=== PATIENT | male | born 1945 | race Caucasian/White ===

== ENCOUNTER 2018-04-15 06:57 | Inpatient (IN) | payer MEDICARE ==
[~2018-04-15] VITALS: Ht 165.1 cm; Wt 80.0 kg
[2018-04-15 07:17] VITALS: BP 167/74; PULSE 66; RESP 18; TEMP 97.7; O2SAT 97
--- NOTE | 2018-04-15 07:36 | PD ---
HPI Chief Complaint: Psychiatric Symptoms Time Seen by Provider: 07:32 Travel History International Travel<30 days: No Contact w/Intl Traveler<30days: No Traveled to known affect area: No History of Present Illness HPI HPI is questionable secondary to patient's altered mental status. 72-year-old male, with history of dementia, presents to the emergency department under Newman act. Apparently he was found walking around a parking lot in his underwear today. He did not know his name or where he was. He apparently is a silver alert from [place]. On my examination the patient is alert and oriented 3; he knows he is in [place], but does not know where; he knows his name and date. He said he drove down here from [place] the day before yesterday. He does not know who the president is. He has a bag of medications with them and says he has not taken any of them except for atenolol, last yesterday. When I asked him if he has been taking his medications he made the statement, "no, they have been trying to kill me." When I asked him who is trying to kill him he could not verify. he denies suicidal or homicidal ideations. Denies illicit drug use. Denies alcohol use. Has no emergent medical complaints at this time. Denies chest pain, shortness of breath, abdominal pain. Symptoms are moderate to severe in severity. No known aggravating or relieving factors. Unknown duration. Unknown onset. Patient says he has "100s of allergies." He cannot verify his past medical history. No other modifying factors or associated signs and symptoms. PFSH Past Medical History Hx Anticoagulant Therapy: Yes (aspirin) Cardiovascular Problems: Yes (unknown cardiac issue) Social History Tobacco Use: No Allergies-Medications (Allergen,Severity, Reaction): Uncoded Allergies: "brain medicine" (Adverse Reaction, Mild, Headache, 04/15/18) Review of Systems Except as stated in HPI: all other systems reviewed are Neg Physical Exam Narrative GENERAL: Well-nourished, well-developed elderly, male patient, in no acute distress SKIN: Warm and dry. HEAD: Atraumatic. Normocephalic. EYES: Pupils equal and round. ENT: Mucosa pink and moist. NECK: Supple. Trachea midline. CARDIOVASCULAR: Regular rate and rhythm. No murmur appreciated. RESPIRATORY: No accessory muscle use. Clear to auscultation. Breath sounds equal bilaterally. GASTROINTESTINAL: Abdomen soft, non-tender, nondistended. Hepatic and splenic margins not palpable. Bowel sounds are active 4 quadrants. MUSCULOSKELETAL: No obvious deformities. No clubbing. No cyanosis. No edema. BACK: No CVA tenderness. NEUROLOGICAL: Awake and alert. Oriented 3. No obvious cranial nerve deficits. Motor grossly within normal limits. Normal speech. Moves all extremities. 5/5 strength to all extremities. PSYCHIATRIC: Delusional thought processes. No hallucinations. Data Data Last Documented VS Vital Signs Date Time Temp Pulse Resp B/P (MAP) Pulse Ox O2 Delivery O2 Flow Rate FiO2 04/15/18 07:17 97.7 66 18 167/74 (105) 97 Orders Orders Complete Blood Count With Diff (04/15/18 07:32) Comprehensive Metabolic Panel (04/15/18 07:32) Thyroid Stimulating Hormone (04/15/18 07:32) Psych Screen (04/15/18 07:32) Drug Screen, Random Urine (04/15/18 07:32) Alcohol (Ethanol) (04/15/18 07:32) Salicylates (Aspirin) (04/15/18 07:32) Tylenol (Acetaminophen) (04/15/18 07:32) Ct Brain W/O Iv Contrast(Rout) (04/15/18 ) Urinalysis - C+S If Indicated (04/15/18 07:36) Admit To Inpatient Psych (04/15/18 ) Vital Signs (Adult) ANGELA.Q12H.E (04/15/18 09:53) Activity Oob Ad Rosie (04/15/18 09:53) Lorazepam (Ativan) (04/15/18 10:00) Lorazepam Inj (Ativan Inj) (04/15/18 10:00) Lorazepam (Ativan) (04/15/18 10:00) Lorazepam Inj (Ativan Inj) (04/15/18 10:00) Acetaminophen (Tylenol) (04/15/18 10:00) Magnesium Hydroxide Liq (Milk Of Magnesi (04/15/18 10:00) Al-Mag Hy-Si 40-40-4 Mg/Ml Liq (Mag-Al P (04/15/18 10:00) Nicotine 21 Mg Patch.24 Hr (Habitrol 21 (04/15/18 10:00) Basic Metabolic Panel (Bmp) (04/16/18 06:00) Lipid Profile (04/16/18 06:00) Hemoglobin (Hgb) A1c (04/16/18 06:00) Labs Laboratory Tests Test 04/15/18 07:32 04/15/18 07:45 White Blood Count 7.1 TH/MM3 Red Blood Count 4.66 MIL/MM3 Hemoglobin 13.0 GM/DL Hematocrit 39.7 % Mean Corpuscular Volume 85.2 FL Mean Corpuscular Hemoglobin 28.0 PG Mean Corpuscular Hemoglobin Concent 32.8 % Red Cell Distribution Width 14.6 % Platelet Count 248 TH/MM3 Mean Platelet Volume 7.9 FL Neutrophils (%) (Auto) 59.6 % Lymphocytes (%) (Auto) 25.3 % Monocytes (%) (Auto) 8.6 % Eosinophils (%) (Auto) 5.7 % Basophils (%) (Auto) 0.8 % Neutrophils # (Auto) 4.2 TH/MM3 Lymphocytes # (Auto) 1.8 TH/MM3 Monocytes # (Auto) 0.6 TH/MM3 Eosinophils # (Auto) 0.4 TH/MM3 Basophils # (Auto) 0.1 TH/MM3 CBC Comment DIFF FINAL Differential Comment Blood Urea Nitrogen 16 MG/DL Creatinine 1.16 MG/DL Random Glucose 95 MG/DL Total Protein 7.6 GM/DL Albumin 4.2 GM/DL Calcium Level 8.8 MG/DL Alkaline Phosphatase 70 U/L Aspartate Amino Transf (AST/SGOT) 20 U/L Alanine Aminotransferase (ALT/SGPT) 21 U/L Total Bilirubin 0.5 MG/DL Sodium Level 144 MEQ/L Potassium Level 3.9 MEQ/L Chloride Level 108 MEQ/L Carbon Dioxide Level 26.7 MEQ/L Anion Gap 9 MEQ/L Estimat Glomerular Filtration Rate 62 ML/MIN Thyroid Stimulating Hormone 3rd Gen 2.150 uIU/ML Salicylates Level LESS THAN 1.7 MG/DL Acetaminophen Level LESS THAN 2.0 MCG/ML Ethyl Alcohol Level LESS THAN 3 MG/DL Urine Color Straw Urine Turbidity CLEAR Urine pH 6.0 Urine Specific [place] 1.003 Urine Protein NEG mg/dL Urine Glucose (UA) NEG mg/dL Urine Ketones NEG mg/dL Urine Occult Blood NEG Urine Nitrite NEG Urine Bilirubin NEG Urine Urobilinogen LESS THAN 2 mg/dL Urine Leukocyte Esterase NEG Urine WBC 1 /hpf Microscopic Urinalysis Comment CULT NOT INDICATED Urine Opiates Screen NEG Urine Barbiturates Screen NEG Urine Amphetamines Screen NEG Urine Benzodiazepines Screen POS Urine Cocaine Screen NEG Urine Cannabinoids Screen NEG MDM Medical Decision Making Medical Screen Exam Complete: Yes Emergency Medical Condition: Yes Medical Record Reviewed: Yes Differential Diagnosis Dementia, Alzheimer's disease, paranoid personality, medical clearance for psychiatric admission Narrative Course Patient presents under a Newman act. Physical examination and vital signs are essentially unremarkable. Patient has no medical complaints to report. Psych screen has been ordered. If the laboratory results are unremarkable, the patient will be medically cleared for psychiatric evaluation and disposition. This patient is a silver alert from [place]. He has history of dementia. His HPI is questionable secondary to his altered mental status. He has a bag of medications with him and he cannot verify when he last took his medication, although he does state he last took atenolol yesterday. He is alert and oriented 3. He is paranoid and statements that someone is trying to kill him. He denies suicidal ideation. Denies homicidal ideation. I will do CT head to rule out any acute findings. CT head ordered. 1006: Head CT concluded: Head CT 04/15/18 0000 Signed Impressions: CONCLUSION: 1. No acute intracranial abnormality is identified. 2. There is mild generalized atrophy. Diagnosis Primary Impression: Medical clearance for psychiatric admission Condition: Stable Mariaa Medellin Apr 15, 2018 07:36
[2018-04-15 07:42] LABS: AUTOMATED NEUTROPHIL # 4.2 TH/MM3 (1.8-7.7); BASOPHIL # 0.1 TH/MM3 (0-0.2); BASOPHIL % 0.8 % (0.0-2.0); EOSINOPHIL # 0.4 TH/MM3 (0-0.4); EOSINOPHIL % 5.7 % (0.0-4.0); HEMATOCRIT 39.7 % (39.0-51.0); LYMPH % 25.3 % (9.0-44.0); LYMPHOCYTE # 1.8 TH/MM3 (1.0-4.8); MEAN CELL VOLUME 85.2 FL (80.0-100.0); MEAN CORPUSCULAR HGB CONC 32.8 % (32.0-36.0); MEAN PLATELET VOLUME 7.9 FL (7.0-11.0); MONO % 8.6 % (0.0-8.0); MONOCYTE # 0.6 TH/MM3 (0-0.9); NEUT % 59.6 % (16.0-70.0); PLATELET COUNT 248 TH/MM3 (150-450); RED BLOOD COUNT 4.66 MIL/MM3 (4.50-5.90); RED CELL DISTRIBUTION WIDTH 14.6 % (11.6-17.2); WHITE BLOOD COUNT 7.1 TH/MM3 (4.0-11.0)
--- NOTE | 2018-04-15 08:05 | RADRPT ---
EXAM DATE: 04/15/2018 7:57 AM EDT AGE/SEX: 72 years / Male INDICATIONS: Altered mental status, Newman Act CLINICAL DATA: This is the patient's initial encounter. Patient reports that signs and symptoms have been present for 1 day and indicates a pain score of 0/10. MEDICAL/SURGICAL HISTORY: None. None. RADIATION DOSE: 38.07 CTDI (mGy) COMPARISON: No prior exams available for comparison. TECHNIQUE: CT of the head without contrast. Using automated exposure control and adjustment of the mA and/or kV according to patient size, radiation dose was kept as low as reasonably achievable to ob tain optimal diagnostic quality images. DICOM format image data is available electronically for revi ew and comparison. FINDINGS: Cerebrum: There is mild generalized atrophy and ventricles are normal given the degree of atrophy. M ild periventricular white matter change is present. No midline shift, mass lesion, hemorrhage or acu te infarction. No extraaxial fluid collections are seen. Posterior Fossa: The cerebellum and brainstem demonstrate no acute abnormality. The 4th ventricle is midline. The cerebellopontine angle is within normal limits. Extracranial: There is complete opacification of the visualized left maxillary sinus. There has been prior left cataract surgery. Skull: The calvaria is intact. No skull fracture. CONCLUSION: 1. No acute intracranial abnormality is identified. 2. There is mild generalized atrophy. Electronically signed by: Renny Brown MD 04/15/2018 8:03 AM EDT
[2018-04-15 08:17] LABS: ALBUMIN 4.2 GM/DL (3.4-5.0); ALT (GPT) 21 U/L (12-78); AST (GOT) 20 U/L (15-37); BICARBONATE 26.7 MEQ/L (21.0-32.0); BLOOD UREA NITROGEN 16 MG/DL (7-18); CALCIUM 8.8 MG/DL (8.5-10.1); CHLORIDE 108 MEQ/L (98-107); CREATININE 1.16 MG/DL (0.60-1.30); GLOMERULAR FILTRATION RATE 62 ML/MIN (>89); GLUCOSE,RANDOM 95 MG/DL (74-106); SODIUM (NA) 144 MEQ/L (136-145)
[2018-04-15 08:27] LABS: ALKALINE PHOSPHATASE 70 U/L (45-117); TOTAL BILIRUBIN ADULT 0.5 MG/DL (0.2-1.0); TOTAL PROTEIN 7.6 GM/DL (6.4-8.2)
[2018-04-15 08:48] LABS: ACETAMINOPHEN LESS THAN 2.0 MCG/ML (10.0-30.0)
[2018-04-15 09:44] LABS: BILIRUBIN, URINE NEG (NEG); BLOOD, URINE NEG (NEG); GLUCOSE,URINE NEG (NEG); KETONE, URINE NEG (NEG); NITRITE,URINE NEG (NEG); URINE COLOR Straw (YELLW/STRAW); URINE LEUKOCYTE ESTERASE NEG (NEG)
[2018-04-15] MEDS ORDERED: ACETAMINOPHEN 325 MG TAB PO PRN (10:00)
[2018-04-15] MEDS: NICOTINE 21 MG/24 HR PATCH T-DERMAL SCH (10:00)
[2018-04-15] MEDS ORDERED: ALUMINUM/MAGNESIUM/SIMETH 30 ML CUP PO PRN (10:00)
[2018-04-15] MEDS ORDERED: LORazepam 2 MG/ML VIAL IM PRN ×2 (10:00)
[2018-04-15] MEDS ORDERED: LORazepam 0.5 MG TAB PO PRN (10:00)
[2018-04-15] MEDS ORDERED: MAGNESIUM HYDROXIDE SUSP 30 ML CUP PO PRN (10:00)
[2018-04-15] MEDS ORDERED: LORazepam 1 MG TAB PO PRN ×2 (10:00→20:00)
[2018-04-15] MEDS ORDERED: DIAZ10TA PO (10:10)
[2018-04-15] MEDS ORDERED: ASPI81CH7 CHEW (10:10)
[2018-04-15] MEDS ORDERED: DULO1CAP2 PO (10:10)
[2018-04-15] MEDS ORDERED: CYCL5TAB PO (10:10)
[2018-04-15] MEDS ORDERED: ATEN50TA PO (10:10)
[2018-04-15] MEDS ORDERED: HALOPERIDOL LACTATE 5 MG/ML AMP IM ONE ×2 (10:15→19:45)
[2018-04-15] MEDS ORDERED: LORazepam 2 MG/ML VIAL IM ONE ×2 (10:15→19:45)
[2018-04-15] MEDS ORDERED: OXYC15TA PO (10:39)
[2018-04-15] MEDS ORDERED: NAME10TA PO (10:39)
[2018-04-15] MEDS ORDERED: AMLO5TAB2 PO (10:39)
[2018-04-15] MEDS ORDERED: AMBI10TA PO (10:39)
[2018-04-15] MEDS ORDERED: MEMA1PAK (10:39)
[2018-04-15] MEDS ORDERED: ROSU1TAB4 PO (10:47)
[2018-04-15] MEDS ORDERED: PRED20 PO (10:47)
[2018-04-15] MEDS ORDERED: PANT40TA3 PO (10:47)
[2018-04-15] MEDS ORDERED: FAMO20TA2 PO (10:47)
[2018-04-15] MEDS ORDERED: ZOFR4TAB PO (10:47)
[2018-04-15] MEDS ORDERED: LEVE250T5 PO (10:47)
[2018-04-15 12:20] VITALS: BP 147/67; PULSE 77; RESP 16; O2SAT 98
--- NOTE | 2018-04-15 12:48 | PD ---
Physical Exam Time Seen by Provider: 12:43 Narrative I evaluated the patient after the patient was found on the floor next to his bed and a fall alert was called. According to the RN this was unwitnessed and he was found on the floor next to his bed. He had no loss of consciousness. According to the RN the patient said that he had rolled off the bed. On my examination the patient states he did roll off the bed onto the floor. He also states that he is rolling off the bed every 5 minutes. He states he has water coming out of his mouth, and there is nothing coming out of his mouth at all. I evaluated this patient earlier this morning and his mental status is unchanged from my previous exam. The patient does not take any blood thinners. I do not see any scalp or facial hematomas, abrasions, lacerations. He had a head CT this morning that was unremarkable. I do not feel it is necessary to repeat the head CT at this time. Data Data Last Documented VS Vital Signs Date Time Temp Pulse Resp B/P (MAP) Pulse Ox O2 Delivery O2 Flow Rate FiO2 04/15/18 07:17 97.7 66 18 167/74 (105) 97 Room Air Orders Orders Complete Blood Count With Diff (04/15/18 07:32) Comprehensive Metabolic Panel (04/15/18 07:32) Thyroid Stimulating Hormone (04/15/18 07:32) Psych Screen (04/15/18 07:32) Drug Screen, Random Urine (04/15/18 07:32) Alcohol (Ethanol) (04/15/18 07:32) Salicylates (Aspirin) (04/15/18 07:32) Tylenol (Acetaminophen) (04/15/18 07:32) Ct Brain W/O Iv Contrast(Rout) (04/15/18 ) Urinalysis - C+S If Indicated (04/15/18 07:36) Admit To Inpatient Psych (04/15/18 ) Vital Signs (Adult) ANGELA.Q12H.E (04/15/18 09:53) Activity Oob Ad Rosie (04/15/18 09:53) Lorazepam (Ativan) (04/15/18 10:00) Lorazepam Inj (Ativan Inj) (04/15/18 10:00) Acetaminophen (Tylenol) (04/15/18 10:00) Magnesium Hydroxide Liq (Milk Of Magnesi (04/15/18 10:00) Al-Mag Hy-Si 40-40-4 Mg/Ml Liq (Mag-Al P (04/15/18 10:00) Nicotine 21 Mg Patch.24 Hr (Habitrol 21 (04/15/18 10:00) Basic Metabolic Panel (Bmp) (04/16/18 06:00) Lipid Profile (04/16/18 06:00) Hemoglobin (Hgb) A1c (04/16/18 06:00) Labs Laboratory Tests Test 04/15/18 07:32 04/15/18 07:45 White Blood Count 7.1 TH/MM3 Red Blood Count 4.66 MIL/MM3 Hemoglobin 13.0 GM/DL Hematocrit 39.7 % Mean Corpuscular Volume 85.2 FL Mean Corpuscular Hemoglobin 28.0 PG Mean Corpuscular Hemoglobin Concent 32.8 % Red Cell Distribution Width 14.6 % Platelet Count 248 TH/MM3 Mean Platelet Volume 7.9 FL Neutrophils (%) (Auto) 59.6 % Lymphocytes (%) (Auto) 25.3 % Monocytes (%) (Auto) 8.6 % Eosinophils (%) (Auto) 5.7 % Basophils (%) (Auto) 0.8 % Neutrophils # (Auto) 4.2 TH/MM3 Lymphocytes # (Auto) 1.8 TH/MM3 Monocytes # (Auto) 0.6 TH/MM3 Eosinophils # (Auto) 0.4 TH/MM3 Basophils # (Auto) 0.1 TH/MM3 CBC Comment DIFF FINAL Differential Comment Blood Urea Nitrogen 16 MG/DL Creatinine 1.16 MG/DL Random Glucose 95 MG/DL Total Protein 7.6 GM/DL Albumin 4.2 GM/DL Calcium Level 8.8 MG/DL Alkaline Phosphatase 70 U/L Aspartate Amino Transf (AST/SGOT) 20 U/L Alanine Aminotransferase (ALT/SGPT) 21 U/L Total Bilirubin 0.5 MG/DL Sodium Level 144 MEQ/L Potassium Level 3.9 MEQ/L Chloride Level 108 MEQ/L Carbon Dioxide Level 26.7 MEQ/L Anion Gap 9 MEQ/L Estimat Glomerular Filtration Rate 62 ML/MIN Thyroid Stimulating Hormone 3rd Gen 2.150 uIU/ML Salicylates Level LESS THAN 1.7 MG/DL Acetaminophen Level LESS THAN 2.0 MCG/ML Ethyl Alcohol Level LESS THAN 3 MG/DL Urine Color Straw Urine Turbidity CLEAR Urine pH 6.0 Urine Specific [place] 1.003 Urine Protein NEG mg/dL Urine Glucose (UA) NEG mg/dL Urine Ketones NEG mg/dL Urine Occult Blood NEG Urine Nitrite NEG Urine Bilirubin NEG Urine Urobilinogen LESS THAN 2 mg/dL Urine Leukocyte Esterase NEG Urine WBC 1 /hpf Microscopic Urinalysis Comment CULT NOT INDICATED Urine Opiates Screen NEG Urine Barbiturates Screen NEG Urine Amphetamines Screen NEG Urine Benzodiazepines Screen POS Urine Cocaine Screen NEG Urine Cannabinoids Screen NEG MDM Supervised Visit with JOSE: No Narrative Course I evaluated the patient after the patient was found on the floor next to his bed and a fall alert was called. According to the RN this was unwitnessed and he was found on the floor next to his bed. He had no loss of consciousness. According to the RN the patient said that he had rolled off the bed. On my examination the patient states he did roll off the bed onto the floor. He also states that he is rolling off the bed every 5 minutes. He states he has water coming out of his mouth, and there is nothing coming out of his mouth at all. I evaluated this patient earlier this morning and his mental status is unchanged from my previous exam. The patient does not take any blood thinners. I do not see any scalp or facial hematomas, abrasions, lacerations. He had a head CT this morning that was unremarkable. I do not feel it is necessary to repeat the head CT at this time. The patient is being admitted to the [facility] and will have continued care and evaluation. Diagnosis Primary Impression: Medical clearance for psychiatric admission Condition: Stable Mariaa Medellin Apr 15, 2018 12:48
[2018-04-15] MEDS ORDERED: levETIRAcetam 250 MG TAB PO PRN (13:30)
[2018-04-15] MEDS: MEMANTINE HCL 10 MG TAB PO SCH ×2 (13:30→15:18)
[2018-04-15] MEDS: DULoxetine HCl DR 30 MG CAP PO SCH ×2 (13:30→15:18)
[2018-04-15 14:09] VITALS: BP 149/70; PULSE 74; RESP 18; TEMP 97.1; O2SAT 98
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
[2018-04-15] MEDS: ATENOLOL 50 MG TAB PO SCH (15:18)
[2018-04-15] MEDS: ATORVASTATIN 10 MG TAB PO SCH (15:18)
[2018-04-15] MEDS: ASPIRIN 81 MG CHEW TAB CHEW SCH (15:18)
[2018-04-15 18:13] VITALS: BP 174/78; PULSE 95; RESP 18; TEMP 97.6; O2SAT 95
[2018-04-15] MEDS ORDERED: HALOPERIDOL LACTATE 5 MG/ML AMP ONE (19:08)
[2018-04-15] MEDS ORDERED: LORazepam 2 MG TAB PO PRN (20:00)
[2018-04-15] MEDS ORDERED: LORazepam 2 MG/ML VIAL IV PUSH PRN ×4 (20:00)
[2018-04-15] MEDS ORDERED: FLUMAZENIL 0.5 MG/5 ML VIAL IV PUSH PRN (20:00)
[2018-04-15] MEDS: REMOVE OLD NICODERM (NICOTINE) PATCH T-DERMAL SCH (20:34)
[2018-04-15] MEDS: HALOPERIDOL 5 MG TAB PO SCH (21:00)
[2018-04-15] MEDS ORDERED: ZOLPIDEM TARTRATE 10 MG TAB PO ONE (22:00)
[2018-04-16 06:10] VITALS: BP 127/59; PULSE 56; RESP 17; TEMP 98.7; O2SAT 95
[2018-04-16 07:16] LABS: BICARBONATE 29.1 MEQ/L (21.0-32.0); BLOOD UREA NITROGEN 15 MG/DL (7-18); CALCIUM 8.8 MG/DL (8.5-10.1); CHLORIDE 109 MEQ/L (98-107); CREATININE 1.06 MG/DL (0.60-1.30); GLOMERULAR FILTRATION RATE 69 ML/MIN (>89); GLUCOSE,RANDOM 80 MG/DL (74-106); SODIUM (NA) 145 MEQ/L (136-145)
[2018-04-16 07:17] LABS: CHOLESTEROL 146 MG/DL (120-200); TRIGLYCERIDES 104 MG/DL (42-150)
[2018-04-16 07:19] LABS: HDL CHOLESTEROL 37.4 MG/DL (40.0-60.0); LDL CHOLESTEROL 88 MG/DL (0-99)
[2018-04-16] MEDS: ATENOLOL 50 MG TAB PO SCH (08:23)
[2018-04-16] MEDS: ASPIRIN 81 MG CHEW TAB CHEW SCH (08:23)
[2018-04-16] MEDS: amLODIPine BESYLATE 5 MG TAB PO SCH (08:23)
[2018-04-16] MEDS: MEMANTINE HCL 10 MG TAB PO SCH (08:28)
[2018-04-16] MEDS: ATORVASTATIN 10 MG TAB PO SCH (08:29)
[2018-04-16] MEDS: DULoxetine HCl DR 30 MG CAP PO SCH (08:29)
[2018-04-16] MEDS: NICOTINE 21 MG/24 HR PATCH T-DERMAL SCH (09:00)
[2018-04-16] MEDS: HALOPERIDOL 5 MG TAB PO SCH ×2 (09:00→20:51)
[2018-04-16] MEDS ORDERED: hydrOXYzine HCL 50 MG TAB PO PRN (09:30)
--- NOTE | 2018-04-16 09:31 | HHI.PYPN ---
Subjective Remarks Patient initially admitted by Dr. Shannon,'s H&P reviewed and agreed with, I have completed the initial psychiatric template admission orders, and review of the med reconciliation orders. Dr. Shannon has initiated first opinion petition supporting N[place] act. I agree I will cosign second opinion petition supporting Newman act. Patient also seen by me with floor staff, he is alert diffusely confused white male appears about his stated age sitting calmly in the day room. He is giving is somewhat mixed at times contradictory statement about having a background been involved with the client is seen operations, there is also a hop strainer both between [place] and [place] and [place]. She just does not he has very telephone numbers and perhaps contacts and those of various areas. We need to do to verify this though his confusion is quite obvious. At this time he does meet the criteria as mentioned above for involuntary psychiatric hospitalization of the Newman act. For now continue treatment Review of Systems Except as stated in HPI: all other systems reviewed are Neg Mental Status Examination Appearance: Dirty, Disheveled Consciousness: Alert Orientation: Person Motor Activity: Normal gait Speech: Rapid Language: Adequate Fund of Knowledge: Adequate Attention and Concentration: Adequate Memory: Unremarkable Mood: Angry Affect: Irritable Thought Process & Associations: Goal directed, Disorganized Thought Content: Bizarre thinking, Preoccupations, Delusional Hallucination Type: None Delusion Type: Bizarre, Paranoid, Somatic Suicidal Ideation: No Suicidal Plan: No Suicidal Intention: No Homicidal Ideation: No Homicidal Plan: No Homicidal Intention: No Insight: Poor Judgment: Poor Results Labs Test 04/16/18 06:36 Blood Urea Nitrogen 15 MG/DL Creatinine 1.06 MG/DL Random Glucose 80 MG/DL Calcium Level 8.8 MG/DL Sodium Level 145 MEQ/L Potassium Level 3.9 MEQ/L Chloride Level 109 MEQ/L Carbon Dioxide Level 29.1 MEQ/L Anion Gap 7 MEQ/L Estimat Glomerular Filtration Rate 69 ML/MIN Triglycerides Level 104 MG/DL Cholesterol Level 146 MG/DL LDL Cholesterol 88 MG/DL HDL Cholesterol 37.4 MG/DL Cholesterol/HDL Ratio 3.90 RATIO Vitals/IOs Vital Signs Date Time Temp Pulse Resp B/P (MAP) Pulse Ox O2 Delivery O2 Flow Rate FiO2 04/16/18 06:10 98.7 56 17 127/59 (81) 95 04/15/18 12:20 Room Air Assessment & Plan Problem List: (1) Brief psychotic disorder ICD Codes: F23 - Brief psychotic disorder Assessment & Plan Estimated LOS: days patient remains psychotic delusional with significant overtones of dementia. For now continue treatment. We will need to get verification of some of the information that he is claiming Justification for Cont. Inpt. At this time patient would decompensate a place to a lower level of care Discharge Planning To be determined Request HC Surrog/Guard Advoc?: No Renny Anguiano MD Apr 16, 2018 09:31
[2018-04-16] MEDS ORDERED: CYCLOBENZAPRINE HCL 10 MG TAB PO PRN (14:30)
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
[2018-04-16] MEDS ORDERED: PILL SPLITTER OTHER PRN (15:30)
[2018-04-16 18:00] LABS: HEMOGLOBIN A1C 5.3 % (4.3-6.0)
[2018-04-16 18:04] VITALS: BP 151/72; PULSE 61; RESP 18; TEMP 97.2; O2SAT 95
[2018-04-16] MEDS: REMOVE OLD NICODERM (NICOTINE) PATCH T-DERMAL SCH (20:53)
[2018-04-16] MEDS ORDERED: diphenhydrAMINE HCL 50 MG CAP PO PRN (21:00)
[2018-04-17 06:45] VITALS: BP 135/65; PULSE 76; RESP 18; TEMP 97.8; O2SAT 98
[2018-04-17] MEDS: ATENOLOL 50 MG TAB PO SCH (08:26)
[2018-04-17] MEDS: ASPIRIN 81 MG CHEW TAB CHEW SCH (08:26)
[2018-04-17] MEDS: amLODIPine BESYLATE 5 MG TAB PO SCH (08:26)
[2018-04-17] MEDS: NICOTINE 21 MG/24 HR PATCH T-DERMAL SCH (08:27)
[2018-04-17] MEDS: DULoxetine HCl DR 30 MG CAP PO SCH (08:35)
[2018-04-17] MEDS: HALOPERIDOL 5 MG TAB PO SCH (08:36)
[2018-04-17] MEDS: MEMANTINE HCL 10 MG TAB PO SCH (08:36)
[2018-04-17] MEDS: ATORVASTATIN 10 MG TAB PO SCH (08:38)
[2018-04-17] MEDS ORDERED: CYCL5TAB PO (08:48)
[2018-04-17] MEDS ORDERED: OXYC15TA PO (08:48)
[2018-04-17] MEDS ORDERED: NAME10TA PO (08:48)
[2018-04-17] MEDS ORDERED: ATEN50TA PO (08:48)
[2018-04-17] MEDS ORDERED: PANT40TA3 PO (08:48)
[2018-04-17] MEDS ORDERED: DULO1CAP2 PO (08:48)
[2018-04-17] MEDS ORDERED: ASPI81CH7 CHEW (08:48)
[2018-04-17] MEDS ORDERED: AMLO5TAB2 PO (08:48)
[2018-04-17] MEDS ORDERED: HALO5TAB PO (08:48)
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
== END 2018-04-17 11:45 | disposition home or self-care (01) | DRG 885 ==
LOC: NEPJ 06:57 → NEDA 09:55 → H250 12:50
PROVIDERS: ADMIT Psychiatry & Neurology Psychiatry; ATTEND Psychiatry & Neurology Psychiatry
DX: F23 Brief psychotic disorder (principal); F03.90 Unspecified dementia, unspecified severity, without behavioral disturbance, psychotic disturbance, mood disturbance, and anxiety; J44.9 Chronic obstructive pulmonary disease, unspecified; I10 Essential (primary) hypertension; G89.29 Other chronic pain; M54.2 Cervicalgia; M54.9 Dorsalgia, unspecified; E78.5 Hyperlipidemia, unspecified; W06.XXXA Fall from bed, initial encounter; Y92.238 Other place in hospital as the place of occurrence of the external cause
CPT/HCPCS: 70450; 80048; 80053; 80061; 80307; 81001; 83036; 84443; 85025; 99285; J1630; J2060